=== PATIENT | male | born 1945 | race Caucasian/White ===

== ENCOUNTER 2019-04-23 12:03 | Inpatient (IN) | payer MEDICARE, BC ==
[~2019-04-23] VITALS: Ht 193 cm; Wt 125.0 kg
[2019-05-08] VITALS (11 sets, daily range): BP systolic 102–127; BP diastolic 59–89; PULSE 61–73; TEMP 97.6–97.8
[2019-05-08] MEDS ORDERED: EFFEXOR XR75 MG/CAP PO (06:02)
[2019-05-08] MEDS ORDERED: SEROQUEL 200MG200 MG PO (06:03)
[2019-05-08] MEDS ORDERED: CRESTOR40 MG PO (06:04)
[2019-05-08] MEDS ORDERED: NEURONTIN300 MG/CAP PO (06:04)
[2019-05-08] MEDS ORDERED: VISION FORMULA1 EAC1 PO (06:05)
[2019-05-08 06:37] LABS: BASO % 0.1 % (0.0-2.0); EOS # 0.1 (0.0-0.7); EOS % 1.6 % (0-4.0); GRAN # 4.8 (1.4-6.5); GRAN % 69.1 % (42.2-75.2); HEMATOCRIT 43.2 % (42.0-52.0); HEMOGLOBIN 14.2 g/dl (13.5-18.0); LYMPH # 1.4 (1.2-3.4); LYMPH % 20.2 % (20.0-51.0); MEAN CELL VOLUME 89 fl (80.0-100.0); MEAN CORPUSCULAR HEMOGLOBIN 29 pg (27.0-31.0); MEAN CORPUSCULAR HGB CONC 33 g/dl (33.0-37.0); MONO # 0.6 (0.1-0.6); MONO % 8.7 % (1.7-9.3); PLATELET COUNT 150 K/mm3 (130-400); RED BLOOD COUNT 4.88 M/mm3 (4.20-5.60); REDCELL DISTRIBUTION WIDTH-CV 12.6 % (11.5-14.5)
[2019-05-08 06:48] LABS: ALBUMIN 3.6 gm/dL (3.5-5.0); BILIRUBIN,TOTAL 0.5 mg/dL (0.0-1.0); CALCIUM 8.8 mg/dL (8.4-10.2); CREATININE, serum 0.73 (0.66-1.25); POTASSIUM 3.7 mmol/L (3.4-5.0); TOTAL PROTEIN 6.2 gm/dL (6.4-8.2)
--- NOTE | 2019-05-08 13:10 | NUR ---
Patient arrived to floor from PACU via bed. Patient is sleepy but rouses easily. Post op checks initiated. Abdi catheter in place and is draining rojas red urine, some sediment evident. Patient denies needs at this time, call light within reach.
--- NOTE | 2019-05-08 18:16 | NUR ---
Patient alert and oriented at this time. Some complaints of pain in abdomen, administered PRN pain medication per orders. Abdi remains in place. Patient had dinner and denies nausea after meal. Patient up to bedside recliner with SBA. Patient denies needs at this time, call light within reach.
--- NOTE | 2019-05-08 20:00 | NUR ---
Patient up in chair at bedside. Is alert and oriented x4, spouse at bedside. Has IVF infusing to left hand without redness or swelling. Abdi catheter to BSD with faintly blood tinged urine noted in tubing. Taking oral fluids well. HS meds given at this time.
--- NOTE | 2019-05-08 21:00 | NUR ---
HS sleep med given and pt assisted to bed. MADELINE drain emptied with 70cc of dark red drainage recorded. Robotic sites dry and intact to abdomen. Ready for sleep.
--- NOTE | 2019-05-08 23:30 | NUR ---
IVF infusing without problem. VSS. Denies pain at this time.
--- NOTE | 2019-05-09 02:30 | NUR ---
Scheduled ES Tylenol given at this time. Abdi emptied for 1650cc. Urine is yellow in tubing. MADELINE with 30cc of bloody drainage emptied at this time. No concerns offered at this time.
[2019-05-09 04:23] VITALS: BP 106/63; PULSE 63; TEMP 97.4
--- NOTE | 2019-05-09 06:05 | NUR ---
Pt denies pain, becerril with good urine output. IVF patent to left hand. MADELINE to bulb sx.
[2019-05-09 07:14] VITALS: BP 109/63; PULSE 66; TEMP 97.8
[2019-05-09 07:34] LABS: HEMATOCRIT 40.2 % (42.0-52.0); HEMOGLOBIN 12.8 g/dl (13.5-18.0)
[2019-05-09 07:51] LABS: CALCIUM 8.2 mg/dL (8.4-10.2); CREATININE, serum 0.78 (0.66-1.25); POTASSIUM 3.6 mmol/L (3.4-5.0)
[2019-05-09 11:53] VITALS: BP 117/73; PULSE 65; TEMP 97.8
--- NOTE | 2019-05-09 12:45 | NUR ---
Blower And Compressor Assembler met with the patient to discuss discharge planning. Patient lives alone outside of [place] and sees Dr. Gamez for primary care. Patient obtains medications from [facility] in [place] with no difficulties. Patient does not use any DME and reports independence with ADLS. Patient was interested in setting up [facility]. Patient wants to designate his daughter, Ophelia Duke and SW assisted patient with completing the form. SW and patient contacted patient's sister in law, Mary to obtain phone number for Ophelia as patient did not have his cell phone on him. Patient provided signature and KALIN and PAIGE Howe provided witness signature. KALIN provided original and copies to patient and also placed copy on patient chart. No additional needs at this time.
--- NOTE | 2019-05-09 12:45 | NUR ---
Patient has been doing well today. He has been passing flatus. Minimal complaints of pain and no nausea. MADELINE discontinued at this time. Patient tolearated well. No drainage after being removed. Patient will be discharging this afternoon. No other changes at this time. Call light within reach.
[2019-05-09] MEDS ORDERED: CIPRO 500MG TA500 MG PO (13:33)
--- NOTE | 2019-05-09 14:22 | NUR ---
Initial visit; Patient thanked Business Banking Sales Assistant for stopping in and offering God's blessings.
--- NOTE | 2019-05-09 14:30 | NUR ---
Patient is discharging home. Discharge instructions discussed with patient. No questions verbalized. Moved stat-lock to becerril to give more slack. Explined how to care for catheter at home. Patient verbalized understanding. Patient packed up his belongings. Copies of discharge instructions sent with patient. Family here to take patient home. Patient walked out via wheel chair with Rich GIBSON.
== END 2019-05-09 14:30 | disposition home or self-care (01) | DRG 708 ==
LOC: INPTSU 05-08 05:21 → SURG 05-08 07:30
PROVIDERS: ADMIT Urology
PROC: 07TC4ZZ Resection of Pelvis Lymphatic, Percutaneous Endoscopic Approach (ICD-10-PCS; 2019-05-08)
PROC: 8E0W4CZ Robotic Assisted Procedure of Trunk Region, Percutaneous Endoscopic Approach (ICD-10-PCS; 2019-05-08)
PROC: 0VT04ZZ Resection of Prostate, Percutaneous Endoscopic Approach (ICD-10-PCS; principal; 2019-05-08 07:30)
DX: C61 Malignant neoplasm of prostate (principal); F41.9 Anxiety disorder, unspecified; M19.90 Unspecified osteoarthritis, unspecified site; F32.9 Major depressive disorder, single episode, unspecified; E78.9 Disorder of lipoprotein metabolism, unspecified; L40.9 Psoriasis, unspecified
CPT/HCPCS: A4314; A9284; J0690; J1100; J1170; J1885; J2250; J2405; J2704; J2710; J3010; J7120